=== PATIENT | male | born 1965 | race Caucasian/White ===

== ENCOUNTER 2020-03-28 15:36 | Emergency (ER) | payer BC, SELFPAY ==
[2020-03-28 15:43] VITALS: BP 142/93; PULSE 88; RESP 18; TEMP 36.8; O2SAT 99
--- NOTE | 2020-03-28 15:49 | ED.LOWEXIN ---
HPI - Extremity Injury (Lower) General Chief Complaint: Extremity Injury, Lower Stated Complaint: L LEG REDNESS Time Seen by Provider: 03/28/20 15:49 Source: patient and RN notes reviewed History of Present Illness HPI Narrative: Patient is a 54-year-old male who presents the urgent care with complaints of redness, swelling, tenderness to the lateral aspect of the left lower leg. Patient states that Wednesday evening he was sitting outside and may have gotten bitten by several mosquitoes. Patient states by Wednesday morning he noticed the area of the lower left leg was more tender and swollen and the redness has continued over the last few days. Patient denies of any fever, chills, nausea, vomiting, shortness of breath, chest pain. Denies any history of DVT or blood clot. No other acute complaints. No acute distress noted. Patient read the plan of care. Related Data Allergies Allergy/AdvReac Type Severity Reaction Status Date / Time aspirin Allergy Unknown Verified 03/28/20 15:42 Review of Systems Review of Systems: Narrative: CONSTITUTIONAL: Denies fever, chills, or sweats. EYES: Denies visual changes, redness, or discharge. ENT: Denies rhinorrhea, congestion, sore throat, or otalgia. CARDIOVASCULAR: Denies chest pain, palpitations, or edema. RESPIRATORY: Denies cough or dyspnea. GASTROINTESTINAL: Denies abdominal pain, nausea, vomiting, or diarrhea. GENITOURINARY: Denies dysuria or hematuria. SKIN: Reports of redness, tenderness, swelling of the left lower leg MUSCULOSKELETAL: Reports of left lower leg swelling NEUROLOGIC: Denies headache, numbness, or weakness. All other systems reviewed are negative, except as documented in HPI. PMFSH Comments At the time of my signature, I reviewed and agree with the nursing past medical, surgical, social, and family history. There is no relevant family history pertinent to the patient complaint. Exam Narrative: Exam Narrative: GENERAL: This is a well-nourished, well-developed patient, in no apparent distress. HEAD: normocephalic, atraumatic. EYES: PERRL. Sclera clear/white. Vision is grossly intact. EARS: External ears normal NOSE: External nose normal with no obvious nasal discharge, nares without redness, no rhinorrhea. THROAT: Mucous membranes moist NECK: Neck supple CARDIOVASCULAR: Regular rate and rhythm without murmurs, gallops, or rubs. RESPIRATORY: Clear to auscultation. Breath sounds equal bilaterally. No wheezes, rales, or rhonchi. SKIN: 8 x 8 cm irregular erythema noted to the lateral aspect of the left lower leg with mild tenderness and edema NEURO: awake, alert, and oriented to person, place and time. There were no obvious focal neurologic abnormalities. EXTREMITIES: No joint tenderness, effusion, or edema noted. No calf tenderness. Negative Homans sign bilaterally. Course Vital Signs Vital signs: Vital Signs Temperature 98.2 F 03/28/20 15:43 Pulse Rate 88 03/28/20 15:43 Respiratory Rate 18 03/28/20 15:43 Blood Pressure 142/93 H 03/28/20 15:43 Pulse Oximetry 99 03/28/20 15:43 Temperature 98.2 F 03/28/20 15:43 Pulse Rate 88 03/28/20 15:43 Respiratory Rate 18 03/28/20 15:43 Blood Pressure 142/93 H 03/28/20 15:43 Pulse Oximetry 99 03/28/20 15:43 Reviewed?patient is informed that they may have pre-hypertension or hypertension based on a blood pressure reading in the department. I recommend the patient call the primary care provider listed on their discharge instructions or a physician of their choice this week to arrange follow-up for further evaluation of possible pre-hypertension or hypertension. MDM - Extremity Injury (Lower) MDM Narrative Medical decision making narrative: Advised the patient to complete oral antibiotic regimen as prescribed. Make sure to eat and drink with the medication. May use Tylenol/ibuprofen as needed for pain. Clean the area with plain Dial soap and water and avoid scratching. May use topical prescription cream
== END 2020-03-28 16:06 | disposition home or self-care (01) ==
PROVIDERS: Emergency Provider Nurse Practitioner Family
DX: L03.116 Cellulitis of left lower limb (principal)
CPT/HCPCS: 99203; G0463

== ENCOUNTER 2021-04-12 14:53 | Observation (INO) | payer BC, SELFPAY ==
[2021-04-12] VITALS (9 sets, daily range): BP systolic 98–126; BP diastolic 63–86; PULSE 70–88; RESP 18–32; TEMP 36.2–37.6; O2SAT 92–96
--- NOTE | ~2021-04-12 | XR_ITS ---
EXAMINATION: XR chest 1V portable EXAM DATE: 04/12/2021 15:17 INDICATION: COVID positive, sob X couple days, no other hx. TECHNIQUE: Portable AP frontal chest x-ray was obtained. There is no prior study for comparison. FINDINGS: Scattered bilateral ill-defined peripheral predominant airspace disease consistent with COV ID pneumonia. Left midlung zone nodular density probably granuloma, some other smaller granulomas janes pected. No pneumothorax or pleural effusion. Cardiomediastinal silhouette is normal. There are mild b kike degenerative changes. IMPRESSION: Small to moderate amount of COVID pneumonia. Several nodules probably granulomas but foll ow-up chest x-ray once pneumonia resolves. Reviewed, dictated and finalized at location A. IMPRESSION: Small to moderate amount of COVID pneumonia. Several nodules probab ly granulomas but follow-up chest x-ray once pneumonia resolves.
--- NOTE | ~2021-04-12 | CT_ITS ---
EXAMINATION: CTA chest PE protocol EXAM DATE: 04/12/2021 16:46 INDICATION: Shortness of breath. Positive left posterior tibial DVT. COVID positive. TECHNIQUE: Spiral CTA of the chest (pulmonary arteries) was performed with 100 cc Omnipaque 350 intr avenous contrast injection. Images were acquired during the pulmonary arterial phase. Coronal maxi mum intensity projection 3D-reconstructions were created by the technologist on dedicated workstation . Axial, coronal and sagittal reformatted images were reviewed. The dose-length product (DLP) for t his examination was 922.56 mGy-cm. The exposure was tailored according to patient size (auto mA exp osure control), and iterative reconstruction (ASIR) was used as additional dose reduction technique. There is no prior study for comparison. FINDINGS: There is suboptimal pulmonary arterial opacification. Probable small right lower lobe pulmo nary embolism. No large or central pulmonary emboli. No thoracic aortic dissection. Moderate amount of bilateral peripheral for dominant groundglass airspace disease, appearance is consistent with COVI D pneumonia. There are no pleural or pericardial effusions. Tracheobronchial tree is patent. The re is no mediastinal, hilar or axillary lymphadenopathy. There is no pneumothorax. Heart normal i n size. No evidence of coronary arterial calcification. Upper abdomen is unremarkable. There is thoracic spondylosis without osteoblastic or osteolytic lesions identified. IMPRESSION: 1. Probable small right lower lobe pulmonary embolism. 2. Moderate amount of COVID pneumonia. Reviewed, dictated and finalized at location A.
--- NOTE | ~2021-04-12 | US_ITS ---
EXAMINATION: US venous doppler [facility] EXAM DATE: 04/12/2021 16:01 INDICATION: Leg pain bilat leg. foot pain. TECHNIQUE: Multiple grayscale, color flow and Doppler images of the lower extremity deep venous syste ms bilaterally were obtained and reviewed. There is no prior study for comparison. FINDINGS: RIGHT SIDE Common femoral: -------- Normal. Profunda femoral: ------- Normal. Femoral: Normal. Popliteal: Normal. Posterior tibial: --------- Normal. Peroneal: Normal. Gastrocnemius: Not visualized. Soleus: Not visualized. Greater saphenous: ----- Normal. Lesser saphenous: ------ Not visualized. LEFT SIDE Common femoral: -------- Normal. Profunda femoral: ------- Normal. Femoral: Normal. Popliteal: Normal. Posterior tibial: ---------Paired, 1 thrombosed. Peroneal: Normal. Gastrocnemius: Not visualized. Soleus: Not visualized. Greater saphenous: ----- Normal. Lesser saphenous: ------ Not visualized. IMPRESSION: 1. Positive for left posterior tibial DVT. 2. No right DVT. I discussed DVT with Michele Song MD at 04/12/2021 16:11 CDT. Reviewed, dictated and finalized at location A.
--- NOTE | 2021-04-12 14:56 | ECG_ITS ---
Measurements Intervals [place] Rate: 77 P: 11 [place]: 135 QRS: 29 QRSD: 93 T: -2 QT: 361 QTc: 410 Interpretive Statements SINUS RHYTHM BORDERLINE ST-T WAVE ABNORMALITY- INFERIOR LEADS BORDERLINE ECG Electronically Signed On 04-13-2021 6:33:19 CDT by Hollis Morales D.O.
[2021-04-12 15:21] LABS: Basophils Percent Auto 0.1 % (0.2-1.2); Eosinophils Absolute Auto 0.2 K/mm3 (0-0.3); Eosinophils Percent Auto 2.1 % (0-4.4); Hematocrit 44.2 % (42.0-52.0); Hemoglobin 15.1 g/dL (14.0-18.0); Immature Granulocyte Absolute 0.04 K/mm3 (0.00-0.031); Immature Granulocyte Percent A 0.4 % (0-0.5); Lymphocytes Absolute Auto 0.89 K/mm3 (0.9-3.2); Lymphocytes Percent Auto 9.9 % (18.3-44.2); Mean Corpuscular HGB Conc 34.2 g/dl (32-36); Mean Corpuscular Hemoglobin 29.4 pg (26-34); Mean Platelet Volume 9.9 fl (7.4-10.4); Monocytes Absolute Auto 0.4 K/mm3 (0.1-0.6); Monocytes Percent Auto 4.1 % (2.6-8.5); Neutrophils Absolute Auto 7.5 K/mm3 (1.3-6.7); Neutrophils Percent Auto 83.4 % (45.5-73.1); Platelet Count Result 228 k/mm3 (150-375); Red Blood Count 5.14 M/mm3 (4.6-6.20); Red Cell Distribution Width 12.8 % (11.5-14.5)
--- NOTE | 2021-04-12 15:26 | ED.SOB ---
HPI - SOB/Dyspnea General Chief Complaint: Shortness of Breath/Dyspnea Stated Complaint: covid positive sob Time Seen by Provider: 04/12/21 15:18 History of Present Illness HPI Narrative: 55 yo male presents to the ED for foot pain and SOB. He reports that he was diagnosed with COVID-19 about 2 weeks ago. He has had cough, congestion, SOB since that time. This morning he developed severe bilateral foot pain he has never had this before. Better with feet elevated. He has not taken anything for the pain. Related Data Home Medications Medication Instructions Recorded Confirmed No Home Medications 04/12/21 04/12/21 Allergies Allergy/AdvReac Type Severity Reaction Status Date / Time aspirin Allergy Hives Verified 04/12/21 15:47 Review of Systems Review of Systems: All systems reviewed & are unremarkable except as noted in HPI and below Constitutional: Constitutional: Reports chills, Reports fever(s) and Reports weakness Eyes: Eyes: Reports no additional eye complaints ENT: Denies sore throat Cardiovascular: Cardiovascular: Denies chest pain Respiratory: Respiratory: Reports chest congestion, Reports cough and Reports dyspnea Gastrointestinal: Gastrointestinal: Reports nausea Genitourinary: Genitourinary: Reports no additional male genitourinary complaints Musculoskeletal: Musculoskeletal: Reports myalgias Neurologic: Denies confusion, Denies numbness and Denies weakness Exam Const: General: no acute distress and ill appearing Orientation/consciousness: patient oriented x3 HENMT: Head: normal to inspection Neck: Neck: normal visual inspection and no lymphadenopathy Resp: Effort & Inspection: tachypneic Auscultation: clear to auscultation bilaterally, crackles and wheezes Cardio: Jugular venous distension: no JVD Rate: regular rate Rhythm: regular rhythm Heart sounds: no murmurs GI: Inspection: non-distended GI Palp: Yes Soft to palpation and No Tenderness to palpation present (GI) Skin: General skin exam: normal color Neuro: General: patient oriented x3 and moves all extremities Speech: normal speech Extrem: General: no edema Other: bilateral foot and calf tenderness Psych: Appearance: well kempt Affect: normal affect Course Vital Signs Vital signs: Vital Signs Temperature 37.6 C H 04/12/21 15:09 Pulse Rate 88 04/12/21 15:09 Respiratory Rate 18 04/12/21 15:09 Blood Pressure 126/79 04/12/21 15:09 Pulse Oximetry 94 04/12/21 15:09 Temperature 36.2 C L 04/12/21 17:45 Pulse Rate 81 04/12/21 17:45 Respiratory Rate 23 H 04/12/21 17:45 Blood Pressure 107/67 04/12/21 17:45 Pulse Oximetry 95 04/12/21 17:52 MDM - SOB/Dyspnea Differential Diagnosis Differential diagnosis: Likely congestive heart failure, community acquired pneumonia, pulmonary embolism and other (COVID) Medical Records Attestation: I reviewed the patient's medical records. Lab Data Attestation: I reviewed the patient's lab results. Result diagrams: 04/12/21 15:15 04/12/21 15:15 Labs: Lab Results 04/12/21 04/12/21 Range/Units 15:15 15:15 WBC 9.0 (4.5-10.0) K/mm3 RBC 5.14 (4.6-6.20) M/mm3 Hgb 15.1 (14.0-18.0) g/dL Hct 44.2 (42.0-52.0) % MCV 86.0 (80-100) fl MCH 29.4 (26-34) pg MCHC 34.2 (32-36) g/dl RDW 12.8 (11.5-14.5) % Plt Count 228 (150-375) k/mm3 MPV 9.9 (7.4-10.4) fl Immature Gran % (Auto) 0.4 (0-0.5) % Neut % (Auto) 83.4 H (45.5-73.1) % Lymph % (Auto) 9.9 L (18.3-44.2) % [place] % (Auto) 4.1 (2.6-8.5) % Eos % (Auto) 2.1 (0-4.4) % Baso % (Auto) 0.1 L (0.2-1.2) % Lymph # (Auto) 0.89 L (0.9-3.2) K/mm3 [place] # (Auto) 0.4 (0.1-0.6) K/mm3 Eos # (Auto) 0.2 (0-0.3) K/mm3 Baso # (Auto) 0.0 (0.0-0.1) K/mm3 Abs Immat Gran (auto) 0.04 H (0.00-0.031) K/mm3 Absolute Neuts (auto) 7.5 H (1.3-6.7) K/mm3 Absolute Nucleated RBC 0.0 (0.0-0.012) K/mm3 Nucleated RBC % 0.0
[2021-04-12] MEDS: KETOROLAC 30 MG/ML VIAL (*BKC) IV PUSH (15:37)
[2021-04-12 15:38] LABS: Anion Gap 8 mmol/L (8-16); Blood Urea Nitrogen 17 mg/dL (9-20); Calcium 9.1 mg/dL (8.4-10.2); Carbon Dioxide 25 mmol/L (22-30); Chloride 100 mmol/L (98-107); Estimated CRCL calculation 107 ml/min; Estimated Glomerular Filt Rate > 60; Glucose 103 mg/dL (65-110); Potassium 4.2 mmol/L (3.4-5.0); Sodium 133 mmol/L (137-145)
[2021-04-12] MEDS: DEXAMETHASONE SOD PHOS INJ 4 MG/ML VIAL 10 MG IV PUSH (17:44)
[2021-04-12] MEDS: ENOXAPARIN 120 MG/0.8 ML SYRINGE 115 MG SUB-Q (17:45)
--- NOTE | 2021-04-12 20:57 | ADMGEN ---
This patient, Sarwat Neff, was admitted to [facility] Surg Room 325-01. Patient/family oriented to hospital policies and general routines including ID bracelet, bed and alarms, visiting hours, pain management, procedures, bathroom and other care routines, personal items, smoking policy, room service/diet, and visiting hours. Information on how to activate the Rapid Response Team has been discussed. Patient/Family are encouraged to report perceived risks to care and to ask questions if they do not understand what they are told or what they should do.
[2021-04-13] VITALS: PULSE 64
[2021-04-13 04:00] VITALS: BP 126/79; PULSE 60; PULSE 64; RESP 20; TEMP 36.4; O2SAT 97
[2021-04-13] MEDS: ENOXAPARIN 120 MG/0.8 ML SYRINGE 115 MG SUB-Q ×2 (05:14→23:07)
--- NOTE | 2021-04-13 06:03 | PM.IMHP ---
H&P: HPI History of Present Illness Date/Time: 04/13/21 06:03 Chief Complaint: pain and bilateral feet, shortness of breath Narrative: 55-year-old male past medical history of obesity and recent diagnosis of COVID pneumonia who presented to the ER with dyspnea on exertion and bilateral feet pain. The patient reports that he was diagnosed with COVID on the 30 of March. Since that time he has been having intermittent fevers. His last fever was on the . He reports that his shortness of breath really has not changed from baseline but his symptoms aseptic not been getting better. Is accompanied by a dry cough. He has not had any loss of sense of taste or smell. He denies any chest pain or palpitations. He reports that if he is at rest she does not have much symptoms. he went to the ER at [facility] 4 days ago and had a repeat COVID test that was negative. But he is still having fevers. He had a chest x-ray at that time and was discharged home. His bought a home pulse oximeter and at times the pulse oximeter was picking up pulse ox is of 86%. However when he came to the ER his pulse ox was never less than 93%. He reported that 2 days ago he began having pain in bottom of bilateral feet and pain over the veins in the top of his feet. The veins in the top of his feet were also painful to touch. The left was more painful than the right and the pain was moderate to severe in intensity with standing and ambulating. He denies any calf pain or swelling. He reports that the pain in his feet has extended up to the back of his ankles. He denies any pain behind his knees. he reports that his contracted COVID after going out with some friends. His had the COVID vaccine and had a relatively short course of illness. The patient has not been vaccinated against COVID. he has never had a colonoscopy. He denies any hematochezia, melena, or hematuria. He has not had any easy bruising or bleeding. [facility] Past Medical History Medical History (Updated 04/13/21 @ 06:22 by Genie Sorto DO) Obesity Surgical History Surgical History (Updated 04/13/21 @ 06:18 by Genie Sorto DO) Ganglion cyst of dorsum of right wrist surgically excised History of bilateral knee replacement (~2015) Family History Family History Father Diabetes mellitus Asthma Hypertension Mother No significant medical problems Social History Social History (Updated 04/13/21 @ 06:19 by Genie Sorto DO) Social History: He lives in [place] with his of 33 years. They have 3 children who are healthy. He smoked 1 pack of cigarettes per day for less than 10 years and quit smoking in his mid 20s. He drinks a 12 pack of beer per week. He denies any illicit substance use. He works at [employer]. Smoking status: Former smoker Alcohol intake: current Drinks per week: 12 Substance use: never Gender identity (if verbalized by the patient): Male Spiritual care concerns: No Meds Home Medications and Allergies Home Medications Medication Instructions Recorded Confirmed Type No Home Medications 04/12/21 04/12/21 History Allergies Allergy/AdvReac Type Severity Reaction Status Date / Time aspirin Allergy Hives Verified 04/12/21 15:47 Vital Signs Vital Signs - 24 hr 04/12/21 15:09 04/12/21 15:17 04/12/21 15:41 Temperature 99.7 F H 98.3 F Pulse Rate 88 84 88 Respiratory Rate 18 29 H Blood Pressure 126/79 114/86 Pulse Oximetry 94 93 04/12/21 16:31 04/12/21 17:45 04/12/21 17:52 Temperature 97.2 F L Pulse Rate 82 81 Respiratory Rate 32 H 23 H Blood Pressure 98/63 L 107/67 Pulse Oximetry 92 94 95 04/12/21 18:39 04/12/21 19:31 04/12/21 20:20 Temperature 98.3 F 98.5 F 99.1 F Pulse Rate 79 76 70 Respiratory Rate 21 H 20 22 H Blood Pressure 107/72 109/71 123/68 Pulse Oximetry 95 93 96 04/13/21 00
[2021-04-13 06:55] LABS: Hematocrit 42.4 % (42.0-52.0); Hemoglobin 14.6 g/dL (14.0-18.0); Mean Corpuscular HGB Conc 34.4 g/dl (32-36); Mean Corpuscular Volume 84.3 fl (80-100); Mean Platelet Volume 10.1 fl (7.4-10.4); Platelet Count Result 254 k/mm3 (150-375); Red Blood Count 5.03 M/mm3 (4.6-6.20); Red Cell Distribution Width 12.7 % (11.5-14.5)
[2021-04-13 08:00] VITALS: BP 118/81; PULSE 59; PULSE 60; RESP 16; TEMP 36.4; O2SAT 96
[2021-04-13] MEDS: APIXABAN 5 MG TABLET 10 MG PO (11:55)
[2021-04-13 12:00] VITALS: BP 109/70; PULSE 86; PULSE 88; RESP 18; TEMP 36.5; O2SAT 94
[2021-04-13 16:00] VITALS: BP 121/75; PULSE 68; PULSE 69; RESP 18; TEMP 36.4; O2SAT 94
--- NOTE | 2021-04-13 17:05 | PM.IMPN ---
Progress Note: A&P Assessment and Plan (1) Pulmonary embolism: Qualifiers: Pulmonary embolism type: single subsegmental (without acute cor pulmonale) Qualified Code(s): I26.93 - Single subsegmental pulmonary embolism without acute cor pulmonale Code(s): I26.99 - Other pulmonary embolism without acute cor pulmonale Status: Acute Assessment and Plan: likely due to COVID-19 and DVT - I suspect his symptoms are from both COVID and this small PE -patient was started on Eliquis but has requested Xarelto instead -I'll stop the Eliquis and give Lovenox tonight. Then I will do Xarelto tomorrow morning. - patient is being kept overnight as his pharmacy is closed and this could not be priced. He also does not have a primary care physician so has no close follow-up. if he is unable to afford this medication we will have to start warfarin tomorrow. -No signs of heart failure on exam (2) DVT (deep venous thrombosis): Qualifiers: Affected thrombotic vein of extremity: tibial Chronicity: acute DVT location: lower extremity Laterality: left Qualified Code(s): I82.442 - Acute embolism and thrombosis of left tibial vein Code(s): I82.409 - Acute embolism and thrombosis of unspecified deep veins of unspecified lower extremity Status: Acute Assessment and Plan: as above - lower extremity pain has improved (3) Pneumonia due to COVID-19 virus: Code(s): U07.1 - COVID-19; J12.82 - Pneumonia due to coronavirus disease 2019 Status: Acute Assessment and Plan: patient is not requiring any oxygen and was diagnosed 14 days ago - Will start Decadron - Remdesivir not indicated - continue anticoagulation as above Additional Plan patient encouraged to establish with a primary care physician and obtain the COVID-19 vaccine 3 months after infection. Time Spent With Patient Time with patient: 25 - 35 minutes Subjective Date/time seen: 04/13/21 17:05 Interval history: Pt is a 55-year-old male here for PE. patient was seen today and states he does okay while he is at rest but does have shortness of breath with movement. He says it has been this way since he has had COVID when he was diagnosed on the 30 of March. he said he initially came in for his lower extremities being very painful and that his veins were very big and painful . Since then, they have not been really hurting him much. He denies shortness of breath at rest, chest pain, nausea, vomiting, fevers, chills, diarrhea or constipation at this time. Review of Systems Review of Systems: All systems reviewed & are unremarkable except as noted in HPI and below Exam Narrative: Exam Narrative: General: Well developed well nourished patient in NAD HEENT: normocephalic Neck: supple Neuro: Alert and oriented x4 CV:RRR Resp: Crackles at the bases Abd: Soft, non distended. No pain to palpation. Positive bowel sounds Extremities: No swelling, erythema, or pain to palpation to either legs or feet. no open wounds. Objective Data Vital Signs Vital Signs: Vital Signs - 24 hr 04/12/21 17:45 04/12/21 17:52 04/12/21 18:39 Temperature 97.2 F L 98.3 F Pulse Rate 81 79 Respiratory Rate 23 H 21 H Blood Pressure 107/67 107/72 Pulse Oximetry 94 95 95 04/12/21 19:31 04/12/21 20:20 04/13/21 00:00 Temperature 98.5 F 99.1 F Pulse Rate 76 70 64 Respiratory Rate 20 22 H Blood Pressure 109/71 123/68 Pulse Oximetry 93 96 04/13/21 04:00 04/13/21 08:00 04/13/21 12:00 Temperature 97.6 F 97.5 F L 97.7 F Pulse Rate 64 60 88 Respiratory Rate 20 16 18 Blood Pressure 126/79 118/81 109/70 Pulse Oximetry 97 96 94 04/13/21 16:00 Temperature 97.6 F Pulse Rate 69 Respiratory Rate 18 Blood Pressure 121/75 Pulse Oximetry 94 Intake/Output Intake/Output: Intake & Output 04/10/21 04/11/21 04/12/21 04/13/21 23:59 23:59 23:59 23:59 Intake Total 222 720 Balance 222 720 Meds/Res
[2021-04-13 20:00] VITALS: BP 136/73; PULSE 73; RESP 18; TEMP 36.6; O2SAT 96
[2021-04-14] VITALS (7 sets, daily range): BP systolic 114–134; BP diastolic 66–92; PULSE 60–78; RESP 16–18; TEMP 36.6–36.7; O2SAT 89–96
[2021-04-14 06:50] LABS: Hematocrit 43.4 % (42.0-52.0); Hemoglobin 14.5 g/dL (14.0-18.0)
[2021-04-14 08:34] LABS: Alanine Aminotransferase 15 U/L (4-50); Albumin Level 3.1 g/dL (3.5-5.1); Alkaline Phosphatase 65 U/L (38-126); Anion Gap 5 mmol/L (8-16); Aspartate Amino Transferase 28 U/L (17-59); Bilirubin,Total 0.6 mg/dL (0.2-1.3); Blood Urea Nitrogen 16 mg/dL (9-20); Calcium 8.9 mg/dL (8.4-10.2); Carbon Dioxide 25 mmol/L (22-30); Chloride 106 mmol/L (98-107); Cholesterol 178 mg/dL (0-200); Estimated CRCL calculation 135 ml/min; Estimated Glomerular Filt Rate > 60; Glucose 119 mg/dL (65-110); HDL Direct 27 mg/dL; Potassium 4.8 mmol/L (3.4-5.0); Sodium 136 mmol/L (137-145); Triglycerides 155 mg/dL (<150)
[2021-04-14 08:45] LABS: LDL Cholesterol Direct 117 mg/dL
[2021-04-14] MEDS: RIVAROXABAN 15 MG TABLET PO (08:53)
--- NOTE | 2021-04-14 10:13 | PCRCNOTE ---
NO HOME O2 NEEDED
--- NOTE | 2021-04-14 12:26 | PM.DS ---
DS: Admitting Diagnosis Admitting Diagnosis PE/DVT DS: Discharge Diagnosis Discharge Diagnosis (1) Pulmonary embolism: Qualifiers: Pulmonary embolism type: single subsegmental (without acute cor pulmonale) Qualified Code(s): I26.93 - Single subsegmental pulmonary embolism without acute cor pulmonale Code(s): I26.99 - Other pulmonary embolism without acute cor pulmonale Status: Acute Assessment and Plan: likely due to COVID-19 and DVT - I suspect his symptoms are from both COVID and this small PE -patient was started on Eliquis but has requested Xarelto instead - Xarelto started and will be 20 dollars a month which he can afford. I told him he needs to find a primary care physician because this will need to be refilled in 1 month and that he will need 3-6 months of therapy. He agreed -No signs of heart failure on exam - home oxygen evaluation completed, patient does not require oxygen at discharge (2) DVT (deep venous thrombosis): Qualifiers: Affected thrombotic vein of extremity: tibial Chronicity: acute DVT location: lower extremity Laterality: left Qualified Code(s): I82.442 - Acute embolism and thrombosis of left tibial vein Code(s): I82.409 - Acute embolism and thrombosis of unspecified deep veins of unspecified lower extremity Status: Acute Assessment and Plan: as above - lower extremity pain has improved (3) Pneumonia due to COVID-19 virus: Code(s): U07.1 - COVID-19; J12.82 - Pneumonia due to coronavirus disease 2019 Status: Acute Assessment and Plan: patient is not requiring any oxygen and was diagnosed 14 days ago - continue Decadron outpatient - continue anticoagulation as above (4) Pilonidal cyst: Code(s): L05.91 - Pilonidal cyst without abscess Status: Acute Assessment and Plan: prescribed Augmentin at the recommendation of Dr. Galvan - follow-up with him in his office for removal DS: Summary Hospital Course Hospital Course: patient is a 55-year-old male who presented emergency room on April 12, 2021 after a 2 week infection of COVID with reports of leg/ foot pain. vitals in the ER were temperature 37.6? C, pulse 88, respiratory rate 18, blood pressure 126/79, pulse ox 94 on room air. Initial CBC was normal. BMP within normal limits with the exception of sodium 133. venous Doppler showing a DVT in the left posterior tibial vein. CTA showed probable small right lower lobe embolism with moderate amount of COVID-19 pneumonia. patient was hospitalized and started on anticoagulation and did well. He did not require any oxygen and had no signs of heart failure. He was kept overnight to ensure that he could afford the anticoagulation desired or he would have to be transition to warfarin. He had no primary care physician so he was kept here in the hospital. Day of discharge pt had complaints of a pilonidal cyst. He said it just popped up a few days ago probably because he has been sitting around with COVID-19. He does not have a primary care doctor. I called Dr. Galvan who recommended Augmentin and follow up with his office. Patient was provided his number. Patient educated about the worrisome signs and symptoms come back to emergency room for and was discharged stable condition. Time Spent with Patient Time attestation: Total time spent providing and/or coordinating discharge services: Exam Narrative: Exam Narrative: General: Well developed well nourished patient in NAD HEENT: normocephalic Neck: supple Neuro: Alert and oriented x4 CV:RRR Resp: Crackles at the bases Abd: Soft, non distended. No pain to palpation. Positive bowel sounds Extremities: No swelling, erythema, or pain to palpation to either legs or feet. no open wounds. Pilonidal cyst to the superior aspect of the gluteal cleft DS: Data Data Completed and Pending Labs on day of discharge: Labs from last 24 hours
== END 2021-04-14 14:40 | disposition home or self-care (01) ==
LOC: ANHED 18:08 → ANH3MEDSUR 18:54
PROVIDERS: Emergency Medicine; Internal Medicine; Physician Assistant; Admitting Provider Internal Medicine; Emergency Provider Emergency Medicine; Visit Provider Family Medicine
DX: I26.93 Single subsegmental thrombotic pulmonary embolism without acute cor pulmonale (principal); I82.442 Acute embolism and thrombosis of left tibial vein; U07.1 COVID-19; J12.82 Pneumonia due to coronavirus disease 2019; L05.91 Pilonidal cyst without abscess; R06.02 Shortness of breath; M79.672 Pain in left foot; M79.671 Pain in right foot; E66.9 Obesity, unspecified; Z68.34 Body mass index [BMI] 34.0-34.9, adult; Z87.891 Personal history of nicotine dependence
CPT/HCPCS: 36415; 71045; 71275; 80048; 80053; 80061; 85014; 85018; 85025; 85027; 93005; 93970; 94618; 96372; 96374; 96375; 99291; A9270; G0378; J1100; J1650; J1885; Q9967

== ENCOUNTER 2023-09-27 16:55 | Emergency (ER) | payer BC, SELFPAY ==
--- NOTE | 2023-09-27 16:59 | ED.EXTPRO ---
HPI - Extremity Problem General Chief complaint: Skin/Abscess/Foreign Body Stated complaint: Cellulitis Time Seen by Provider: 09/27/23 16:58 Source: patient Mode of arrival: ambulatory Limitations: no limitations History of Present Illness HPI Narrative: Sarwat is a 58-year-old male patient presenting to the clinic today with complaints of left lower leg cellulitis. He reports his symptoms started on September 05 2023. 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 He is not currently taking any anticoagulant medications at this time. States he had no DVT at that time. Reports his blood work was relatively normal and they sent him home with doxycycline. Took the doxycycline for 9 days and contacted his primary care provider as his swelling and redness was not improving. His primary care provider than gave him a shot of antibiotics and then started him on cefdinir. He reports that he had little improvement with the cefdinir however he is now finished with the cefdinir and the redness and swelling is getting worse again. He denies any fever or chills today. Denies any shortness of breath or chest pain. Related Data Allergies Allergy/AdvReac Type Severity Reaction Status Date / Time aspirin Allergy Severe Anaphylaxis Verified 09/27/23 17:19 Review of Systems Review of Systems: Pertinent positives per HPI. Patient denies any fever, chills, rash, headache, visual changes, dizziness, cough, runny nose, sore throat, shortness of breath, chest pain, palpitations, nausea, vomiting, diarrhea, constipation, abdominal pain, or any urinary issues. [facility] Past Medical History Medical History Obesity Surgical History Surgical History Ganglion cyst of dorsum of right wrist surgically excised History of bilateral knee replacement (~2015) Family History Family History Father Diabetes mellitus Asthma Hypertension Mother No significant medical problems Social History Social History Social History: He lives in [place] with his of 33 years. They have 3 children who are healthy. He smoked 1 pack of cigarettes per day for less than 10 years and quit smoking in his mid 20s. He drinks a 12 pack of beer per week. He denies any illicit substance use. He works at [employer]. Smoking status: Former smoker Alcohol intake: current Drinks per week: 12 Substance use: never Gender identity (if verbalized by the patient): Male Spiritual care concerns: No Comments At the time of my signature, I reviewed and agree with the nursing past medical, surgical, social, and family history. There is no relevant family history pertinent to the patient complaint. Exam Narrative: General: Well-developed, well nourished, in no apparent distress Head: Normocephalic, atraumatic. Cardio: Regular rate and rhythm, s1 and s2 normal, no murmur appreciated. Resp: Clear to auscultation bilaterally, no rhonchi, rales, wheezing or rubs. Musculoskeletal: No deformity, tender to palpation with erythema, grossly normal range of motion, muscle strength strong and equal, peripheral pulse strong, 1+ pitting edema with redness and swelling below the knee and to the left medial ankle, no cyanosis, normal gait and station Course Course Emergency Course: Portions of this record may have been created with voice recognition software. Level of Care: Express Care Visit Vital Signs Vital signs: Vital signs reviewed Transfer Transfered to: Other ([facility] in [place], [place]) Transportation: Other (private car) Transfer rationale: Left lower leg cellulit
[2023-09-27 17:03] VITALS: BP 142/95; PULSE 76; RESP 16; TEMP 35.8; O2SAT 97
== END 2023-09-27 17:23 | disposition short-term general hospital (02) ==
PROVIDERS: Emergency Provider Nurse Practitioner Family
DX: L03.116 Cellulitis of left lower limb (principal); E66.9 Obesity, unspecified; Z68.38 Body mass index [BMI] 38.0-38.9, adult; Z96.653 Presence of artificial knee joint, bilateral; Z86.718 Personal history of other venous thrombosis and embolism; Z86.711 Personal history of pulmonary embolism
CPT/HCPCS: 99212; G0463

== ENCOUNTER 2024-05-06 13:13 | Emergency (ER) | payer BC, SELFPAY ==
--- NOTE | 2024-05-06 13:20 | ED.SKABFB ---
HPI - Skin/Abscess/Foreign Bdy General Chief complaint: Skin/Abscess/Foreign Body Stated complaint: cellulitus infection? Time Seen by Provider: 05/06/24 13:47 Source: patient and RN notes reviewed Mode of arrival: ambulatory Limitations: dementia History of Present Illness HPI narrative: 58-year-old male presents with concern for redness, warmth to the left lower anterior leg. Reports he started feeling feverish and had general malaise yesterday. Reports he took naproxen and he slept. He reports history of cellulitis in this extremity. MD complaint: other (Redness) Related Data Home Medications Medication Instructions Recorded Confirmed meloxicam 15 mg tablet mg 05/06/24 Allergies Allergy/AdvReac Type Severity Reaction Status Date / Time aspirin Allergy Severe Anaphylaxis Verified 05/06/24 13:33 Review of Systems Review of Systems: CONSTITUTIONAL: Reports malaise, feeling feverish EYES: Denies redness, or discharge. ENT: Denies rhinorrhea, congestion, swollen lips, swollen tongue CARDIOVASCULAR: Denies chest pain, palpitations, or edema. RESPIRATORY: Denies cough or dyspnea. GASTROINTESTINAL: Denies abdominal pain, nausea, vomiting SKIN: Reports redness, swelling to the left lower extremity. Denies purulent drainage, vesicles, bullae, numbness, pain beyond proportion MUSCULOSKELETAL: Denies joint pain or myalgia. NEUROLOGIC: Denies headache. All systems reviewed & are unremarkable except as noted in HPI and below PMFSH Past Medical History Medical History Obesity Surgical History Surgical History Ganglion cyst of dorsum of right wrist surgically excised History of bilateral knee replacement (~2016) Family History Family History Father Diabetes mellitus Asthma Hypertension Mother No significant medical problems Social History Social History Social History: He lives in [place] with his of 33 years. They have 3 children who are healthy. He smoked 1 pack of cigarettes per day for less than 10 years and quit smoking in his mid 20s. He drinks a 12 pack of beer per week. He denies any illicit substance use. He works at [employer]. Smoking status: Former smoker Alcohol intake: current Drinks per week: 12 Substance use: never Gender identity (if verbalized by the patient): Male Spiritual care concerns: No Comments At time of signature, agree with nursing past medical, surgical, social and family history. There is no relevant family history pertinent to the presenting complaint Exam Narrative: GENERAL: Well-appearing, well-nourished, and in no acute distress. HEAD: Normocephalic, atraumatic. EYES: PERRLA, conjunctivae clear ENT: Mucous membranes moist. NECK: Supple. No lymphadenopathy CHEST: Clear to auscultation. No respiratory distress. HEART: Regular rate and rhythm. SKIN: Warm, dry. Erythema, my a induration, warmth with sharp margins noted to the left lower anterior leg. No vesicles, bullae, necrosis, ecchymosis, crepitus noted. NEURO: Alert and oriented x3. PSYCH: Normal mood and affect Course Course Emergency Course: Patient is aware of diagnosis, understands and agrees to treatment plan. Anticipatory guidance given. Patient agrees to follow-up as directed and is aware of reasons to seek care at the emergency department. Portions of this record may have been created with voice recognition software Level of Care: Express Care Visit Vital Signs Vital signs: Reviewed. MDM - Skin/Abscess/Foreign Bdy MDM Narrative Medical decision making narrative: I evaluated this in the express care. History is obtained from patient who is an independent historian and physical exam was performed.? Availa
[2024-05-06 13:30] VITALS: BP 133/82; PULSE 85; RESP 18; TEMP 37.1; O2SAT 97
== END 2024-05-06 14:01 | disposition home or self-care (01) ==
PROVIDERS: Emergency Provider Nurse Practitioner; PCP Physician Assistant
DX: L03.116 Cellulitis of left lower limb (principal); Z87.891 Personal history of nicotine dependence; E66.9 Obesity, unspecified; Z68.37 Body mass index [BMI] 37.0-37.9, adult
CPT/HCPCS: 99213; G0463